=== PATIENT | male | born 1950 | race Caucasian/White ===

== ENCOUNTER → 2019-05-09 | Day surgery (SDC) | payer BC, MEDICARE ==
[~2019-05-09] MED LIST: ATORVASTATIN CA80 MG PO; FLUT100D IH; INSU100C4 SQ; INSU100I13 SQ; IV RINGERS,LACTATED 1000ML 1,000 ML IV SCH; LIDOCAINE 1% PF 2 ML VIAL. ID PRN; LIDOCAINE 2% PF 5 ML VIAL. ONE; LISI10TA2 PO; METO50TA6 PO; MIDAZOLAM HCL/PF 2 MG/2 ML VIAL. IV PRN; NAPR-514 PO; PROPOFOL 40 ML IV ONE; fentaNYL PF VIAL 100 MCG/2 ML VIAL IV PRN
[2019-05-09 08:30] VITALS: BP 114/64
--- NOTE | 2019-05-10 16:06 | PATHOLOGY ---
[facility] Accession Number: [id number] . 01 Material submitted: . esophagus - DISTAL ESOPHAGEAL. Modifiers: distal . 01 Clinical history: . Melena, weight loss Reflux/rule out Ledesma's . 02 Diagnosis: Esophageal biopsies, distal esophagus: - Segments of hyperplastic squamous esophageal mucosa consistent with reflux esophagitis. (JPM:hong; 05/10/2019) QMS/05/10/2019 . 02 Comment: Sections of the distal esophageal biopsy reveal segments of tangentially oriented hyperplastic squamous esophageal mucosa which focally contains a few intraepithelial eosinophils and neutrophils. The findings are consistent with reflux esophagitis. There is no evidence of Ledesma's change, dysplasia, or malignancy. (JPM:hong; 05/10/2019) . 02 Electronically signed: . Jhony Berkowitz MD, Pathologist NPI- [id number] . 01 Gross description: . The specimen is received in formalin, labeled "Jhony Adler, distal esophageal BX" and consists of multiple translucent fragments of martinez-ellison tissue measuring 0.9 x 0.7 x 0.2 cm in aggregate which are entirely submitted in A1. (SDY; 05/09/2019) SYU/SYU . 02 Pathologist provided ICD-10: K21.0 . 02 CPT . 071796 Specimen Comment: A courtesy copy of this report has been sent to Specimen Comment: [phone], . Specimen Comment: Report sent to / DR GOMES Performed at: 01 [facility] [address], [place], [place] [id number] MD Ramone Ackerman MD Phone: [phone] Performed at: 02 [facility] [address] [place], [place] [id number] MD Jhony Berkowitz MD Phone: [phone]
== END ==
LOC: SURG 06:29
PROVIDERS: ATTEND Internal Medicine Gastroenterology
DX: K21.0 Gastro-esophageal reflux disease with esophagitis (principal); E11.9 Type 2 diabetes mellitus without complications; D64.9 Anemia, unspecified; F15.90 Other stimulant use, unspecified, uncomplicated; Z87.39 Personal history of other diseases of the musculoskeletal system and connective tissue; Z72.89 Other problems related to lifestyle; Z79.899 Other long term (current) drug therapy; Z98.890 Other specified postprocedural states; Z79.84 Long term (current) use of oral hypoglycemic drugs
CPT/HCPCS: 43239; 82962; 88305; J2001; J2704

== ENCOUNTER 2021-04-22 23:14 | Observation (INO) | payer MEDICARE ==
[~2021-04-22] VITALS: Ht 176.5 cm; Wt 90.8 kg
[~2021-04-22 23:14] MED LIST changes: -FLUT100D IH; +FLUT100D2 IH; -IV RINGERS,LACTATED 1000ML 1,000 ML IV SCH; -LIDOCAINE 1% PF 2 ML VIAL. ID PRN; -LIDOCAINE 2% PF 5 ML VIAL. ONE; +LISI10TA16 PO; -LISI10TA2 PO; -MIDAZOLAM HCL/PF 2 MG/2 ML VIAL. IV PRN; -PROPOFOL 40 ML IV ONE; -fentaNYL PF VIAL 100 MCG/2 ML VIAL IV PRN
[2021-04-22] MEDS ORDERED: METO50TA4 PO (23:30)
[2021-04-22] MEDS ORDERED: HYDR12.58 PO (23:32)
[2021-04-22] MEDS ORDERED: DIPH25CA58 PO (23:39)
[2021-04-22] MEDS ORDERED: IBUP-1027 PO (23:40)
[2021-04-22] MEDS ORDERED: MECO10005 PO (23:43)
[2021-04-22] MEDS ORDERED: D3 PO (23:45)
[2021-04-22] MEDS ORDERED: MAGN400T17 PO (23:46)
[2021-04-23] VITALS (13 sets, daily range): BP systolic 137–170; BP diastolic 58–71
[2021-04-23] MEDS ORDERED: INSU100V31 SQ (00:35)
[2021-04-23] MEDS ORDERED: INSU100C4 SQ ×2 (00:37→00:38)
[2021-04-23] MEDS ORDERED: NOVALOG SQ ×2 (01:03→01:06)
--- NOTE | 2021-04-23 01:21 | NUR ---
Admit from [facility] ER via EMS. A/O x 4 on arrival to unit. Stood from [facility] and transferred to bed in room with standby assist. Patient reports he was eating dinner and felt like something got lodged in his throat. Transferred to [facility] for GI consult. Orientated to room and call light. Reviewed POC to include NPO and GI Consult. Verbalized understanding. Resting in bed with call light at hand.
[2021-04-23] MEDS: IV NORMAL SALINE 1000ML BAG 1,000 ML IV SCH ×2 (04:53→15:10)
--- NOTE | 2021-04-23 08:39 | PDOC1 ---
History and Physical Date of Admission Date of Admission DATE: 04/23/21 TIME: 08:38 Identification/Chief Complaint Chief Complaint Esophageal foreign body obstruction Source Source: Patient History of Present Illness History of Present Illness Is a 70-year-old male with past medical history of diabetes, who presents as a transfer from [facility] due to esophageal foreign body obstruction. Patient was reportedly eating a homemade deer meat casserole at home, when he began choking with food. Has coughed up several foreign bodies, but still feels that the food bolus is stuck in his throat. At [facility] ER CT neck was obtained that showed distended appearance of the esophagus with layering fluid level and associated soft tissue prominence at the level of the aortic arch that may represent food bolus. Prior to arrival in [facility] ER patient took his insulin prior to eating but did not finish his meal. His blood sugar dropped to 40 which improved with some orange juice and 1 amp of D50. Of note patient states she has had an ulcer esophagus in the past. He denies any history of esophageal webs. He currently denies any shortness of breath. Will admit patient for further medical management. Past Medical History Past Medical History Type 1 diabetes, HTN, TIA Past Surgical History Past Surgical History Appendectomy, tonsillectomy, right AKA Family History Family History Type 1 diabetes Social History Smoke: No ALCOHOL: occassional Drugs: Marijuana Current Medications Current Medications Current Medications Sodium Chloride 1,000 ml @ 100 mls/hr Q10H IV Last administered on 04/23/21at 04:53; Start 04/23/21 at 04:45 Active Scripts Active Reported [Novalog ] SQ Decrease Novalog if FSBS is: 71 to 80 - decrease 1 unit 61 to 70 - decrease 2 units 51 to 60 - decrease 3 units under 50 - decrease 4 units [Novalog ] 0 SQ ADD Novalog if FSBS is: 140 to 180 - 1 unit 181 to 240 - 2 units 240 to 300 - 3 units 301 to 400 - 4 units 401 to 500 - 5 units Novolog (Insulin Aspart) 100 Unit/1 Ml Cartridge 13 Unit SQ DAILYWSUP Novolog (Insulin Aspart) 100 Unit/1 Ml Cartridge 6 Unit SQ DAILYWLUN Novolog (Insulin Aspart) 100 Unit/1 Ml Vial 6 Unit SQ DAILYWBKFT Magox 400 (Magnesium Oxide) 400 Mg Tablet 400 Mg PO BID [D3 ] 1,000 Intlu PO BID B12 Active (Mecobalamin) 1,000 Mcg Tab.chew 1,000 Mcg PO BID Ibuprofen 400 Mg Tablet 400 Mg PO PRN Q6HRS PRN Benadryl (Diphenhydramine Hcl) 25 Mg Capsule 25 Mg PO HS Hydrochlorothiazide Tablet (Hydrochlorothiazide) 12.5 Mg Tablet 12.5 Mg PO DAILY Toprol XL (Metoprolol Succinate) 50 Mg Tab.er.24h 50 Mg PO DAILY Lantus Solostar (Insulin Glargine,Hum.rec.anlog) 100 Unit/1 Ml Insuln.pen 23 Unit SQ HS Lisinopril 10 Mg Tablet 10 Mg PO DAILY Atorvastatin Calcium 80 Mg Tablet 80 Mg PO HS Allergies Allergies: Coded Allergies: aspirin (Verified Allergy, Intermediate, 05/09/19) nicotine (Verified Allergy, Intermediate, 05/09/19) peanut (Verified Allergy, Intermediate, 04/23/21) Uncoded Allergies: SUNTAN LOTION (Allergy, Unknown, 05/09/19) ROS Review of System GENERAL: No history of weight change, weakness or fevers. SKIN: No bruising, hair changes or rashes. EYES: No blurred, double or loss of vision. NOSE AND THROAT: No history of nosebleeds, hoarseness or sore throat. HEART: Denies chest pain, denies palpitations. LUNGS: Denies cough, hemoptysis, wheezing or shortness of breath. GASTROINTESTINAL: Difficulty swallowing. Denies nausea, vomiting, abdominal pain. GENITOURINARY: Denies dysuria, frequency, urgency, hematuria. NEUROLOGIC: Denies history of numbness, tingling, tremor or weakness. PSYCHIATRIC: Denies anxiety, denies depression. ENDOCRINE: No history of heat or cold intolerance, polyuria or polydipsia. EXTREMITIES: Denies muscle weakness, joint pain, pain on walking or stiffness. Physical Exam Physical Exam General: Alert, Oriented X3, Cooperative, No acute distress HEENT: PERRLA, EOMI Lungs: Clear to auscultation, Normal air movement Heart: RRR, no murmurs Cardiovascular: S1, S2 Abdomen: Normal bowel sounds, Soft, No tenderness Extremities: Right AKA. No clubbing, No cyanosis Skin: No rashes, No significant lesion Neuro: Normal speech, Normal tone, Sensation intact Psych/Mental Status: Mental status NL, Mood NL Vitals Vitals Vital Signs Date Time Temp Pulse Resp B/P (MAP) Pulse Ox O2 Delivery O2 Flow Rate FiO2 04/23/21 03:00 97.7 70 16 137/71 (93) 95 Room Air 97.7 Labs Labs Laboratory Tests Test 04/23/21 08:13 Glucose (Fingerstick) 277 mg/dL (70-99) Laboratory Tests Test 04/23/21 08:13 Glucose (Fingerstick) 277 mg/dL (70-99) Images Images NECK SOFT TISSUE Exam: Neck 2 views INDICATION: Possible food bolus, feels like food stuck after eating TECHNIQUE: Frontal and lateral views of the neck Comparisons: None FINDINGS: Prevertebral soft tissues are unremarkable. No radiopaque foreign body identified. There is mild multilevel spondylotic change in the cervical spine with degenerative disc disease greatest at C4-C5 and C5-C6. Mild bilateral facet arthropathy is also noted in the cervical spine. Visualized paraspinal soft tissues are unremarkable. IMPRESSION: Multilevel spondylotic change in the lumbar spine as described above. No radiopaque foreign body identified. CT SOFT TISSUE NECK WO CONTRST CLINICAL HISTORY: Reason: Possible food bolus, patient feels food is stuck after eating, n/ COMPARISON: None available. TECHNIQUE: CT of the neck was performed without IV contrast. Axial, coronal and sagittal reformatted images were generated. PQRS compliance statement - One or more of the following individualized dose reduction techniques were utilized for this study: 1. Automated exposure control 2. Adjustment of the mA and/or kV according to patient size 3. Use of iterative reconstruction technique FINDINGS: Images through the skull base and cavernous sinuses are unremarkable. The orbits are unremarkable. The paranasal sinuses and mastoid air cells are unremarkable. The nasopharynx, oral pharynx and oral cavity including the floor of the mouth and tongue are unremarkable. The hypopharynx including the epiglottis, vallecula and pyriform sinuses are unremarkable. The larynx, vocal cords and subglottic airways are unremarkable/patent. The parotid and submandibular glands are unremarkable. The thyroid gland is unremarkable. The carotid arteries and jugular veins are patent. There is no evidence of pathologically enlarged lymph nodes. The osseous structures are unremarkable. The esophagus is distended, with layering fluid as well as soft tissue density at the level of the aortic arch. IMPRESSION: Distended appearance of the esophagus with layering fluid level and associated soft tissue prominence at the level of the aortic arch and may represent food bolus. This can be further assessed by endoscopy. VTE Prophylaxis Ordered VTE Prophylaxis Devices: No VTE Pharmacological Prophylaxi: Yes Assessment/Plan Assessment/Plan Esophageal foreign body Type 1 insulin-dependent diabetes History TIA Plan: Consult placed to GI Anticipate EGD today. If successful without complications patient may discharge home this evening Due to continued symptoms will keep patient NPO until EGD Provide sliding scale insulin FEN - ADA diet PPX - Heparin FULL CODE Dispo - observation for above Advance Care Planning: Total time spent [id number] with patient 16 minutes in discussion with goals of care, comfort care, end-of-life care, pain management, code status; patient names his son and DPOA (Dustin Adler) as surrogate decision-maker. Justifications for Admission Other Justification TONY MATHEW MD Apr 23, 2021 08:39
[2021-04-23] MEDS ORDERED: MAGNESIUM HYDROXIDE 2,400 MG/30 ML ORAL.SUSP. PO PRN (09:15)
[2021-04-23] MEDS ORDERED: CALCIUM CARBONATE 500 MG TAB.CHEW PO PRN (09:15)
[2021-04-23] MEDS ORDERED: ACETAMINOPHEN 325 MG TABLET. PO PRN (09:15)
[2021-04-23] MEDS ORDERED: MAG HYDROX/ALUMINUM HYD/SIMETH 30 ML ORAL.SUSP PO PRN (09:15)
[2021-04-23] MEDS ORDERED: BISACODYL 10 MG SUPP.RECT. PR PRN (09:15)
[2021-04-23] MEDS ORDERED: ONDANSETRON PF 4 MG/2 ML VIAL. IVP PRN (09:15)
[2021-04-23] MEDS ORDERED: MORPHINE SULFATE 2 MG/ML VIAL. IV PRN (09:15)
[2021-04-23] MEDS: MAGNESIUM OXIDE 400 MG TABLET PO SCH ×2 (09:28→20:17)
[2021-04-23] MEDS: LISINOPRIL 10 MG TABLET PO SCH (09:28)
[2021-04-23] MEDS: hydroCHLOROthiazide 12.5 MG CAPSULE PO SCH (09:28)
[2021-04-23] MEDS: METOPROLOL SUCC 24HR ER 50 MG TAB.ER.24H. PO SCH (09:29)
[2021-04-23] MEDS: CYANOCOBALAMIN (VITAMIN B-12) 1,000 MCG TABLET. PO SCH ×2 (09:29→20:17)
[2021-04-23] MEDS ORDERED: DEXTROSE 50% 25 GM / 50ML DISP.SYRIN. IV PRN (09:30)
[2021-04-23] MEDS ORDERED: IV DEXTROSE 5% 250 ML BAG. IV PRN (09:30)
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
[2021-04-23] MEDS: PANTOPRAZOLE IV PUSH 40 MG VIAL. IVP SCH (12:17)
[2021-04-23] MEDS: INSULIN LISPRO 300 UNITS/3 ML VIAL. SQ SCH ×3 (12:21→18:28)
[2021-04-23 12:43] LABS: HEMATOCRIT 43.8 % (39.0-53.0); HEMOGLOBIN 15.1 g/dL (13.0-17.5); RED BLOOD COUNT 5.04 x10^6/uL (4.30-5.70); RED CELL DISTRIBUTION WIDTH 14.1 % (11.5-14.5)
[2021-04-23 12:55] LABS: CALCIUM 9.1 mg/dL (8.5-10.1); GFR 74.3; POTASSIUM 4.3 mmol/L (3.5-5.1)
--- NOTE | 2021-04-23 13:04 | NUR ---
SS following for discharge planning. SS reviewed pt chart and discussed with pt RN. Pt is from home and is currently on room air. GI consulted. EGD being scheduled. SS will continue to follow for discharge planning.
[2021-04-23] MEDS: HEPARIN for SUB-Q USE 5,000 UNIT/ML VIAL. SQ SCH ×2 (14:00→20:19)
[2021-04-23] MEDS: IV RINGERS,LACTATED 1000ML 1,000 ML IV SCH (15:58)
[2021-04-23] MEDS ORDERED: PROPOFOL 10 MG/ML (20ML) VIAL. IV ONE (17:24)
[2021-04-23] MEDS ORDERED: LIDOCAINE 2% PF 5 ML VIAL. ONE (17:25)
--- NOTE | 2021-04-23 17:57 | PDOC4 ---
Operative Note Operative Note EGD with biopsies/foreign body removal Meds propofol per anesthesia Pre-op dx dysphagia/impacted foreign body Post-op dx Schatzki ring s/p disimpactoin of meat bolus antral gastritis s/p bx multiple duodenal ulcers Plan PPI therapy for 2 months EGD in 2-3 weeks for dilation advance diet tonight may release home once o2 sats are stable off oxygen ENMA PRICE MD Apr 23, 2021 17:57
[2021-04-23] MEDS ORDERED: ATORVASTATIN CALCIUM 40 MG TABLET. PO SCH (21:00)
[2021-04-24 02:45] VITALS: BP 147/58
[2021-04-24] MEDS: IV NORMAL SALINE 1000ML BAG 1,000 ML IV SCH ×2 (02:47→10:45)
[2021-04-24] MEDS: IV RINGERS,LACTATED 1000ML 1,000 ML IV SCH (02:47)
[2021-04-24] MEDS: PANTOPRAZOLE IV PUSH 40 MG VIAL. IVP SCH (05:56)
[2021-04-24] MEDS: HEPARIN for SUB-Q USE 5,000 UNIT/ML VIAL. SQ SCH (06:03)
[2021-04-24 07:00] VITALS: BP 133/62
[2021-04-24] MEDS: MAGNESIUM OXIDE 400 MG TABLET PO SCH (08:31)
[2021-04-24] MEDS: CYANOCOBALAMIN (VITAMIN B-12) 1,000 MCG TABLET. PO SCH (08:31)
[2021-04-24] MEDS: hydroCHLOROthiazide 12.5 MG CAPSULE PO SCH (08:31)
[2021-04-24] MEDS: METOPROLOL SUCC 24HR ER 50 MG TAB.ER.24H. PO SCH (08:31)
[2021-04-24] MEDS: LISINOPRIL 10 MG TABLET PO SCH (08:32)
[2021-04-24] MEDS: INSULIN LISPRO 300 UNITS/3 ML VIAL. SQ SCH ×2 (08:37→12:00)
--- NOTE | 2021-04-24 09:49 | PDOC ---
Date of Service: DATE: 04/24/21 TIME: 09:44 Subjective: Subjective: Feels fine, tolerating clear liquids w/o swallowing issues. On room air. Feels better after insulin. Has chronic hip/back pain - sometimes relieved after stooling - asks if this is because of the ulcers. Objective: Objective: Nurse asks about advancing diet and DC. Vital Signs: Vital Signs Date Time Temp Pulse Resp B/P (MAP) Pulse Ox O2 Delivery O2 Flow Rate FiO2 04/24/21 08:32 105 04/24/21 07:00 98.0 16 133/62 (85) 94 Room Air 98.0 04/23/21 17:51 4 Labs: Laboratory Tests Test 04/23/21 12:15 04/23/21 18:24 04/23/21 20:02 04/24/21 02:17 Glucose (Fingerstick) 288 mg/dL (70-99) 340 mg/dL (70-99) 282 mg/dL (70-99) 346 mg/dL (70-99) Test 04/24/21 07:16 Glucose (Fingerstick) 320 mg/dL (70-99) Imaging: EGD 04/23 Pre-op dx dysphagia/impacted foreign body Post-op dx Schatzki ring s/p disimpactoin of meat bolus antral gastritis s/p bx multiple duodenal ulcers Plan PPI therapy for 2 months EGD in 2-3 weeks for dilation advance diet tonight may release home once o2 sats are stable off oxygen PE: GEN: NAD LUNGS: CTAB HEART: RRR ABD: NABS, S/ND/NT NEURO/PSYCH: A & O 3 A/P: Meat bolus s/p disimpaction Antral gastritis (biopsy pending), multiple DUs DM/hyperglycemia ?IBS -- ADAT. DC on PPI x 2-3 months. D/w nurse. Also discussed Rx vs OTC options w/ pt. EGD w/ dilation as outpt in 2-3 weeks - our office will contact to arrange. Justicifation of Admission Dx: Justifications for Admission: Justification of Admission Dx: Yes SOURAV GILBERT Apr 24, 2021 09:49
[2021-04-24] MEDS ORDERED: INSULIN LISPRO 300 UNITS/3 ML VIAL. SQ ONE ×2 (10:30→12:00)
--- NOTE | 2021-04-24 10:34 | PDOC ---
[employer] PROGRESS NOTE Date of Service DOS: DATE: 04/24/21 TIME: 10:29 Chief Complaint Chief Complaint Esophageal foreign body Schatzki ring Impacted food bolus Antral gastritis Multiple duodenal ulcers Type 1 insulin-dependent diabetes History TIA Plan: Consult placed to GI Anticipate EGD today. If successful without complications patient may discharge home this evening Due to continued symptoms will keep patient NPO until EGD Provide sliding scale insulin FEN - ADA diet PPX - Heparin FULL CODE Dispo - observation for above History of Present Illness History of Present Illness Is a 70-year-old male with past medical history of diabetes, who presents as a transfer from [facility] due to esophageal foreign body obstruction. Patient was reportedly eating a homemade deer meat casserole at home, when he began choking with food. Has coughed up several foreign bodies, but still feels that the food bolus is stuck in his throat. At [facility] ER CT neck was obtained that showed distended appearance of the esophagus with layering fluid level and associated soft tissue prominence at the level of the aortic arch that may represent food bolus. Prior to arrival in [facility] ER patient took his insulin prior to eating but did not finish his meal. His blood sugar dropped to 40 which improved with some orange juice and 1 amp of D50. Of note patient states she has had an ulcer esophagus in the past. He denies any history of esophageal webs. He currently denies any shortness of breath. Will admit patient for further medical management. 04/24: Patient had EGD yesterday that showed Schatzki ring s/p disimpactoin of meat bolus, antral gastritis s/p biopsies, multiple duodenal ulcers. Plan is for PPI for 2 months with repeat EGD in 2-3 weeks for dilation. Denies chest pain, dysphagia, or odynophagia. Greater than 30 minutes was spent in the discharge of this patient. Vitals/I&O Vitals/I&O: Vital Signs Date Time Temp Pulse Resp B/P (MAP) Pulse Ox O2 Delivery O2 Flow Rate FiO2 04/24/21 08:32 105 04/24/21 07:00 98.0 16 133/62 (85) 94 Room Air 98.0 04/23/21 17:51 4 I & O 04/23/21 04/23/21 04/24/21 15:00 23:00 07:00 Intake Total 1400 ml 1000 ml Output Total 50 ml 590 ml Balance -50 ml 810 ml 1000 ml Physical Exam General: Alert, Oriented X3, Cooperative Heart: Regular rate Lungs: Clear Abdomen: No tenderness Extremities: No clubbing, No cyanosis, Other (Right AKA) Skin: No rashes, No breakdown Labs Labs: Laboratory Tests Test 04/23/21 12:15 04/23/21 12:25 04/23/21 18:24 04/23/21 20:02 Glucose (Fingerstick) 288 mg/dL (70-99) 340 mg/dL (70-99) 282 mg/dL (70-99) White Blood Count 15.0 x10^3/uL (4.0-11.0) Red Blood Count 5.04 x10^6/uL (4.30-5.70) Hemoglobin 15.1 g/dL (13.0-17.5) Hematocrit 43.8 % (39.0-53.0) Mean Corpuscular Volume 87 fL (79-100) Mean Corpuscular Hemoglobin 30 pg (25-35) Mean Corpuscular Hemoglobin Concent 35 g/dL (31-37) Red Cell Distribution Width 14.1 % (11.5-14.5) Platelet Count 243 x10^3/uL (140-400) Sodium Level 142 mmol/L (136-145) Potassium Level 4.3 mmol/L (3.5-5.1) Chloride Level 105 mmol/L (98-107) Carbon Dioxide Level 20 mmol/L (21-32) Anion Gap 17 (6-14) Blood Urea Nitrogen 20 mg/dL (8-26) Creatinine 1.0 mg/dL (0.7-1.3) Estimated GFR (Cockcroft-Gault) 74.3 Glucose Level 295 mg/dL (70-99) Calcium Level 9.1 mg/dL (8.5-10.1) Test 04/24/21 02:17 04/24/21 07:16 04/24/21 09:59 Glucose (Fingerstick) 346 mg/dL (70-99) 320 mg/dL (70-99) 381 mg/dL (70-99) Comment Review of Relevant I have reviewed the following items matthew (where applicable) has been applied. Medications: Current Medications Medications (Trade) Dose Ordered Sig/Jonn Route PRN Reason Start Time Stop Time Status Last Admin Dose Admin Atorvastatin Calcium (Lipitor) 80 mg QHS PO 04/23/21 21:00 04/23/21 20:17 Heparin Sodium (Porcine) (Heparin Sodium) 5,000 unit Q8HRS SQ 04/23/21 14:00 04/24/21 06:03 Insulin Human Lispro (HumaLOG) 0-9 UNITS TIDWMEALS SQ 04/23/21 12:00 04/24/21 08:37 Pantoprazole Sodium (PROTONIX VIAL for IV PUSH) 40 mg DAILYAC IVP 04/23/21 11:30 04/24/21 09:49 DC 04/24/21 05:56 Ringer's Solution 1,000 ml @ 75 mls/hr [id number] IV 04/23/21 16:00 04/23/21 15:58 Justifications for Admission Other Justification Esophageal foreign body TONY MATHEW MD Apr 24, 2021 10:34
--- NOTE | 2021-04-24 10:40 | PDOC3 ---
Discharge Summary Visit Information Date of Admission: Apr 23, 2021 Date of Discharge: Apr 24, 2021 Brief Hospital Course Allergies Allergies Coded Allergies Type Severity Reaction Last Updated Verified aspirin Allergy Intermediate 04/23/21 Yes nicotine Allergy Intermediate 04/23/21 Yes peanut Allergy Intermediate 04/23/21 Yes Uncoded Allergies Type Severity Reaction Last Updated Verified SUNTAN LOTION Allergy Unknown 05/09/19 Vital Signs Vital Signs Date Time Temp Pulse Resp B/P (MAP) Pulse Ox O2 Delivery O2 Flow Rate FiO2 04/24/21 08:32 105 04/24/21 07:00 98.0 16 133/62 (85) 94 Room Air 98.0 04/23/21 17:51 4 Lab Results Laboratory Tests Test 04/22/21 23:18 04/23/21 02:25 04/23/21 04:39 04/23/21 08:13 Glucose (Fingerstick) 176 mg/dL (70-99) 197 mg/dL (70-99) 237 mg/dL (70-99) 277 mg/dL (70-99) Test 04/23/21 12:15 04/23/21 12:25 04/23/21 18:24 04/23/21 20:02 Glucose (Fingerstick) 288 mg/dL (70-99) 340 mg/dL (70-99) 282 mg/dL (70-99) White Blood Count 15.0 x10^3/uL (4.0-11.0) Red Blood Count 5.04 x10^6/uL (4.30-5.70) Hemoglobin 15.1 g/dL (13.0-17.5) Hematocrit 43.8 % (39.0-53.0) Mean Corpuscular Volume 87 fL (79-100) Mean Corpuscular Hemoglobin 30 pg (25-35) Mean Corpuscular Hemoglobin Concent 35 g/dL (31-37) Red Cell Distribution Width 14.1 % (11.5-14.5) Platelet Count 243 x10^3/uL (140-400) Sodium Level 142 mmol/L (136-145) Potassium Level 4.3 mmol/L (3.5-5.1) Chloride Level 105 mmol/L (98-107) Carbon Dioxide Level 20 mmol/L (21-32) Anion Gap 17 (6-14) Blood Urea Nitrogen 20 mg/dL (8-26) Creatinine 1.0 mg/dL (0.7-1.3) Estimated GFR (Cockcroft-Gault) 74.3 Glucose Level 295 mg/dL (70-99) Calcium Level 9.1 mg/dL (8.5-10.1) Test 04/24/21 02:17 04/24/21 07:16 04/24/21 09:59 Glucose (Fingerstick) 346 mg/dL (70-99) 320 mg/dL (70-99) 381 mg/dL (70-99) Laboratory Tests Test 04/23/21 12:15 04/23/21 12:25 04/23/21 18:24 04/23/21 20:02 Glucose (Fingerstick) 288 mg/dL (70-99) 340 mg/dL (70-99) 282 mg/dL (70-99) White Blood Count 15.0 x10^3/uL (4.0-11.0) Red Blood Count 5.04 x10^6/uL (4.30-5.70) Hemoglobin 15.1 g/dL (13.0-17.5) Hematocrit 43.8 % (39.0-53.0) Mean Corpuscular Volume 87 fL (79-100) Mean Corpuscular Hemoglobin 30 pg (25-35) Mean Corpuscular Hemoglobin Concent 35 g/dL (31-37) Red Cell Distribution Width 14.1 % (11.5-14.5) Platelet Count 243 x10^3/uL (140-400) Sodium Level 142 mmol/L (136-145) Potassium Level 4.3 mmol/L (3.5-5.1) Chloride Level 105 mmol/L (98-107) Carbon Dioxide Level 20 mmol/L (21-32) Anion Gap 17 (6-14) Blood Urea Nitrogen 20 mg/dL (8-26) Creatinine 1.0 mg/dL (0.7-1.3) Estimated GFR (Cockcroft-Gault) 74.3 Glucose Level 295 mg/dL (70-99) Calcium Level 9.1 mg/dL (8.5-10.1) Test 04/24/21 02:17 04/24/21 07:16 04/24/21 09:59 Glucose (Fingerstick) 346 mg/dL (70-99) 320 mg/dL (70-99) 381 mg/dL (70-99) Brief Hospital Course Mr. Adler is a 70 old male who presented with esophageal food impaction. Patient was placed to GI. Had EGD that showed Schatzki ring s/p disimpactoin of meat bolus, antral gastritis s/p biopsies, multiple duodenal ulcers. Plan is for PPI for 2 months with repeat EGD in 2-3 weeks for dilation. Recommend follow-up with PCP within 5-7 days Discharge Information Condition at Discharge: Improved Follow Up: Weeks Disposition/Orders: D/C to Home Scheduled Atorvastatin Calcium (Atorvastatin Calcium) 80 Mg Tablet, 80 MG PO HS for FOR CHOLESTEROL, (Reported) Entered as Reported by: AMILCAR LIRIANO on 05/09/19723 Last Action: Converted on 04/23/21851 by TONY MATHEW MD Diphenhydramine Hcl (Benadryl) 25 Mg Capsule, 25 MG PO HS for allergies/nasal congestion, (Reported) Entered as Reported by: CHASIDY RIVERA on 04/22/212338 Last Action: Reviewed on 04/23/21756 by STEVE PEOPLES RN Hydrochlorothiazide (Hydrochlorothiazide Tablet) 12.5 Mg Tablet, 12.5 MG PO DAILY for DIURETIC, Ref 0 (Reported) Entered as Reported by: CHASIDY RIVERA on 04/22/212331 Last Action: Converted on 04/23/21851 by TONY MATHEW MD Insulin Aspart (Novolog) 100 Unit/1 Ml Vial, 6 UNIT SQ DAILYWBKFT for IDDM, (Reported) Entered as Reported by: CHSAIDY RIVERA on 04/23/2134 Last Action: Reviewed on 04/23/21756 by STEVE PEOPLES RN Insulin Aspart (Novolog) 100 Unit/1 Ml Cartridge, 6 UNIT SQ DAILYWLUN for IDDM, (Reported) Entered as Reported by: CHASIDY RIVERA on 04/23/2136 Last Action: HELD on 04/23/21851 by TONY MATHEW MD Insulin Aspart (Novolog) 100 Unit/1 Ml Cartridge, 13 UNIT SQ DAILYWSUP for IDDM, (Reported) Entered as Reported by: CHASIDY RIVERA on 04/23/2137 Last Action: Reviewed on 04/23/21756 by STEVE PEOPLES RN Insulin Glargine,Hum.rec.anlog (Lantus Solostar) 100 Unit/1 Ml Insuln.pen, 23 UNIT SQ HS for IDDM, (Reported) Entered as Reported by: AMILCAR LIRIANO on 05/09/19 0727 Last Action: Reviewed on 04/23/21756 by STEVE PEOPLES RN Lisinopril (Lisinopril) 10 Mg Tablet, 10 MG PO DAILY for FOR HYPERTENSION, (Reported) Entered as Reported by: AMILCAR LIRIANO on 05/09/19 0724 Last Action: Continued on 04/23/21851 by TONY MATHEW MD Magnesium Oxide (Magox 400) 400 Mg Tablet, 400 MG PO BID for supplement, (Reported) Entered as Reported by: CHASIDY RIVERA on 04/22/212345 Last Action: Continued on 04/23/21851 by TONY MATHEW MD Mecobalamin (B12 Active) 1,000 Mcg Tab.chew, 1,000 MCG PO BID for supplement, (Reported) Entered as Reported by: CHASIDY RIVERA on 04/22/212342 Last Action: Converted on 04/23/21851 by TONY MATHEW MD Metoprolol Succinate (Toprol XL) 50 Mg Tab.er.24h, 50 MG PO DAILY for FOR HYPERTENSION, (Reported) Entered as Reported by: CHASIDY RIVERA on 04/22/212329 Last Action: Continued on 04/23/21851 by TONY MATHEW MD [D3 ] , 1,000 INTLU PO BID, (Reported) Entered as Reported by: CHASIDY RIVERA on 04/22/212344 Last Action: Reviewed on 04/23/21756 by STEVE PEOPLES RN Scheduled PRN Ibuprofen (Ibuprofen) 400 Mg Tablet, 400 MG PO PRN Q6HRS PRN for INFLAMMATION, (Reported) Entered as Reported by: CHASIDY RIVERA on 04/22/212339 Last Action: Reviewed on 04/23/21756 by STEVE PEOPLES RN Miscellaneous Medications [Novalog ] , 0 SQ, (Reported) ADD Novalog if FSBS is: 140 to 180 - 1 unit 181 to 240 - 2 units 240 to 300 - 3 units 301 to 400 - 4 units 401 to 500 - 5 units Entered as Reported by: CHASIDY RIVERA on 04/23/21102 Last Action: Reviewed on 04/23/21756 by STEVE PEOPLES RN [Novalog ] , SQ, (Reported) Decrease Novalog if FSBS is: 71 to 80 - decrease 1 unit 61 to 70 - decrease 2 units 51 to 60 - decrease 3 units under 50 - decrease 4 units Entered as Reported by: CHASIDY RIVERA on 04/23/21105 Last Action: Reviewed on 04/23/21756 by STEVE PEOPLES RN Justicifation of Admission Dx: Justifications for Admission: Justification of Admission Dx: Yes TONY MATHEW MD Apr 24, 2021 10:40
[2021-04-24] MEDS ORDERED: PANT40TA77 PO (10:42)
--- NOTE | 2021-04-24 10:58 | NUR ---
SS following up with discharge planning. SS reviewed pt chart and discussed with pt RN. Pt is currently on room air. Per physician, discharge to home with self care. Discharge order on the chart.
[2021-04-24 11:26] VITALS: BP 146/60
--- NOTE | 2021-04-24 15:25 | NUR ---
Discharge: Teaching verbal and written. Reviewed medication, follow-up, EGD, esophageal dilation, DM, Diet, ect. patient verbalized understanding. Prescription sent to pharmacy by physician. IV removed without complications, catheter tip in tact. All belongings with patient. Patient assisted off of unit via wheelchair accompanied by son, JUANJOSE. LLE prosthesis in place
[2021-04-25] MEDS ORDERED: PANTOPRAZOLE 40 MG TABLET.DR. PO SCH (07:30)
--- NOTE | 2021-04-27 15:07 | PATHOLOGY ---
[facility] Accession Number: [id number] . 01 Material submitted: . stomach - GASTRIC BX R/O H PYLORI . 01 Clinical history: . FOREIGN BODY EGD . 02 Diagnosis: Gastric biopsies: - Superficial congestion and focal slight chronic inflammation. (JPM:hong; 04/27/2021) [facility] [place]/27/[place] 0924 Local . 02 Comment: Sections of the gastric biopsy reveal segments of gastric body mucosa showing superficial congestion and focal slight chronic inflammation. A properly controlled immunoperoxidase stain for Helicobacter is negative for Helicobacter organisms. (JPM:hong; 04/27/2021) . . Special stain performed: Immunoperoxidase stain for Helicobacter on A1 . 02 Electronically signed: . Jhony Berkowitz MD, Pathologist NPI- [id number] . 01 Gross description: . The specimen is received in formalin, labeled "Jhony Adler", "gastric biopsy rule out H. pylori". Received are multiple segments of pale ellison soft tissue ranging in size from 0.2 cm to 0.4 cm. The specimen is entirely submitted in cassette A1.([facility]; 04/26/2021) [facility] 04/26/2021 1046 Local . 02 Pathologist provided ICD-10: K31.89, K29.50 . 02 CPT . 083677, S35261 Specimen Comment: A courtesy copy of this report has been sent to [phone] Specimen Comment: [phone], Specimen Comment: Report sent to ,DR BELL / DR PRICE Performed at: 01 [facility] [address] [place] [address] [address], [place], [place] [id number] MD Bo Brush MD Phone: [phone] Performed at: 02 [facility] [address] [place], [place] [id number] MD Jhony Berkowitz MD Phone: [phone]
== END 2021-04-24 12:55 | disposition home or self-care (01) ==
LOC: 2 NORTH 23:14 → INTOOBSV 23:14
PROVIDERS: ADMIT Internal Medicine; ATTEND Internal Medicine
DX: T18.128A Food in esophagus causing other injury, initial encounter (principal); E10.65 Type 1 diabetes mellitus with hyperglycemia; I10 Essential (primary) hypertension; I63.9 Cerebral infarction, unspecified; K21.00 Gastro-esophageal reflux disease with esophagitis, without bleeding; K22.2 Esophageal obstruction; K26.4 Chronic or unspecified duodenal ulcer with hemorrhage; K29.70 Gastritis, unspecified, without bleeding; K40.90 Unilateral inguinal hernia, without obstruction or gangrene, not specified as recurrent; E78.5 Hyperlipidemia, unspecified; R29.700 NIHSS score 0; K58.9 Irritable bowel syndrome, unspecified; Z79.4 Long term (current) use of insulin; Z86.73 Personal history of transient ischemic attack (TIA), and cerebral infarction without residual deficits; Z87.19 Personal history of other diseases of the digestive system; Z89.611 Acquired absence of right leg above knee; Z96.652 Presence of left artificial knee joint; Z90.49 Acquired absence of other specified parts of digestive tract; Z79.899 Other long term (current) drug therapy; Z98.890 Other specified postprocedural states
CPT/HCPCS: 36415; 43239; 43247; 80048; 82962; 85027; 88305; 88342; 96361; 96372; 96374; 96376; C9113; G0378; G0379; J1644; J1815; J2704; J7030; J7120

== ENCOUNTER → 2021-07-10 | Day surgery (SDC) | payer MEDICARE ==
[~2021-07-10] VITALS: Ht 175.3 cm; Wt 84.0 kg
[~2021-07-10] MED LIST changes: +D3 PO; +DIPH25CA58 PO; +HYDR12.58 PO; +HYDROmorphone 2 MG/ML VIAL IVP PRN; +IBUP-1027 PO; +INSU100V31 SQ; +IV RINGERS,LACTATED 1000ML 1,000 ML IV SCH; +LIDOCAINE 2% PF 5 ML VIAL. ONE; +MAGN400T17 PO; +MECO10005 PO; +METO50TA4 PO; +MORPHINE SULFATE 2 MG/ML INJ. IVP PRN; +NOVALOG SQ; +PANT40TA77 PO; +PROCHLORPERAZINE 10 MG/2 ML VIAL. IVP PRN; +PROPOFOL 10 MG/ML (20ML) VIAL. IV ONE; +fentaNYL PF VIAL 100 MCG/2 ML VIAL IVP PRN
[2021-07-10 08:37] VITALS: BP 133/74
[2021-07-10 10:40] VITALS: BP 116/60
--- NOTE | 2021-07-11 01:03 | HP ---
ADMIT DATE: 07/10/2021 UPDATED HISTORY AND PHYSICAL REASON: History of heartburn, history of dysphagia. HISTORY OF PRESENT ILLNESS: A 70-year-old male with past medical history significant for diabetes, arthritis, anemia, seen for interval dilatation. The patient has had difficulties with swallowing in the past with food impaction. He has had increased heartburn ____ OTC remedies and is here for further evaluation. PAST MEDICAL HISTORY: Diabetes, arthritis, anemia, hyperlipidemia. ALLERGIES: ASPIRIN, NICOTINE, PANTOPRAZOLE, ____. MEDICATIONS: Atorvastatin, Benadryl, hydrochlorothiazide, insulin, lisinopril, magnesium, B12, metoprolol. FAMILY AND SOCIAL HISTORY: Significant for diabetes and hypertension. He is a nonsmoker, social drinker. PAST SURGICAL HISTORY: Appendectomy, eye surgery, hernia repair, joint replacement surgery. REVIEW OF SYSTEMS: Per records. PHYSICAL EXAMINATION: GENERAL: Reveals a well-nourished, well-developed male. VITAL SIGNS: Temperature 97.8, pulse 74, respiratory rate 20. LUNGS: Clear. CARDIOVASCULAR: S1, S2, without S3, S4 or appreciable murmur. ABDOMEN: Reveals a soft abdomen, normal bowel sounds without appreciable hepatosplenomegaly. EXTREMITIES: No cyanosis, clubbing or edema. IMPRESSION: Reflux with intermittent dysphagia. Interval dilatation and biopsy was recommended. Risks and benefits were previously discussed. The patient is willing to proceed at this time. CORNELIA/UZMA DR: Steve TID: [id number]
--- NOTE | 2021-07-13 18:06 | PATHOLOGY ---
[facility] Accession Number: [id number] . 01 Material submitted: . esophagus - DISTAL ESOPHAGEAL BIOPSIES. Modifiers: distal . 01 Clinical history: . HX ULCERS EGD DYSPHAGIA, DUODENAL ULCERS . 02 Diagnosis: Esophageal biopsies, distal esophagus: - Segments of hyperplastic squamous esophageal mucosa, esophagogastric mucosa, and gastric mucosa showing mild to moderate chronic inflammation. . . ([facility]:mm; 07/13/2021) [facility] 07/13/2021 1557 Local . 02 Comment: The findings are consistent with reflux changes. There is no evidence of Ledesma's change, dysplasia, or malignancy. . ([facility]:mm; 07/13/2021) . 02 Electronically signed: . Jhony Berkowitz MD, Pathologist NPI- [id number] . 01 Gross description: . The specimen is received in formalin, labeled "Vitor Jhony, distal esophageal biopsies". Received are multiple segments of pale ellison tissue ranging in size from 0.3 to 0.5 cm in maximum dimensions. The specimen is submitted entirely in cassette A1.([facility]; 07/10/2021) [facility] 07/10/2021 1738 Local . 02 Pathologist provided ICD-10: K29.50 . 02 CPT . 261184 Specimen Comment: A courtesy copy of this report has been sent to [phone] Specimen Comment: Report sent to DR. GOMES Performed at: 01 [facility] [address], [place] [id number] MD Bo Brush MD Phone: [phone] Performed at: 02 [facility] [address] [place], [place] [id number] MD Jhony Berkowitz MD Phone: [phone]
== END | disposition home or self-care (01) ==
LOC: ENDOS 08:08
PROVIDERS: ATTEND Internal Medicine Gastroenterology
DX: R12 Heartburn (principal); R13.10 Dysphagia, unspecified; K21.00 Gastro-esophageal reflux disease with esophagitis, without bleeding; K29.50 Unspecified chronic gastritis without bleeding; K31.89 Other diseases of stomach and duodenum; E11.9 Type 2 diabetes mellitus without complications; M19.90 Unspecified osteoarthritis, unspecified site; I10 Essential (primary) hypertension; E78.00 Pure hypercholesterolemia, unspecified; Z87.891 Personal history of nicotine dependence; Z79.4 Long term (current) use of insulin; Z79.899 Other long term (current) drug therapy; Z98.890 Other specified postprocedural states; Z82.49 Family history of ischemic heart disease and other diseases of the circulatory system; Z83.3 Family history of diabetes mellitus; Z88.8 Allergy status to other drugs, medicaments and biological substances
CPT/HCPCS: 43239; 43450; 82962; 88305; J2704